=== PATIENT | male | born 1995 | race Asian ===

== ENCOUNTER → 2022-02-04 | Outpatient (REF) | LOC: M PLAIMG 10:34 | PROVIDERS: ATTEND Internal Medicine | DX: R06.02 Shortness of breath (principal) ==

== ENCOUNTER → 2024-07-16 | Outpatient (CLI) | payer OTHER | LOC: M PLARAD 13:35 | PROVIDERS: ATTEND Physician Assistant Medical | DX: M54.2 Cervicalgia (principal) ==